=== PATIENT | male | born 1975 | race Caucasian/White ===

== ENCOUNTER 2018-03-25 11:49 | Day surgery (SDC) | payer MEDICAID, OTHER ==
[~2018-03-25] VITALS: Ht 170.2 cm; Wt 78.7 kg
[2018-03-25] MEDS ORDERED: novalog SQ (12:25)
[2018-03-25] MEDS ORDERED: INSU100V8 SQ (12:25)
[2018-03-25] MEDS ORDERED: LACTATED RINGERS 1,000 ML IV SCH (12:26)
[2018-03-25 12:43] VITALS: BP 116/81
[2018-03-25] MEDS ORDERED: ONDANSETRON ODT 8 MG PO PRN (13:00)
[2018-03-25] MEDS ORDERED: hydrALAzine 20 MG/ML, 1ML IV PRN (13:00)
[2018-03-25] MEDS ORDERED: FENTANYL PF 100 MCG/2ML IV PRN (13:00)
[2018-03-25] MEDS ORDERED: HYDROmorphone 1 MG/ML, 1ML IV PRN (13:00)
[2018-03-25] MEDS ORDERED: ONDANSETRON 2MG/ML, 2ML IV PRN (13:00)
[2018-03-25] MEDS ORDERED: PROMETHAZINE 25 MG/ML, 1ML IV PRN (13:00)
[2018-03-25] MEDS ORDERED: PROMETHAZINE 25 MG SUPP PR PRN (13:00)
[2018-03-25] MEDS ORDERED: LABETALOL 5MG/ML, 20ML IV PRN (13:00)
[2018-03-25] MEDS ORDERED: MEPERIDINE/PF 25MG/0.5ML IVPush PRN (13:00)
[2018-03-25] MEDS ORDERED: MORPHINE SULFATE 4 MG/ML, 1ML IVPush PRN (13:00)
[2018-03-25] MEDS ORDERED: PROMETHAZINE 12.5 MG SUPP PR PRN (13:00)
[2018-03-25 13:10] LABS: ALANINE AMINOTRANSFERASE 36 U/L (12-78); ALBUMIN 3.6 g/dL (3.4-5.0); ANION GAP 5 mmol/L (5-15); CALCIUM 8.5 mg/dL (8.5-10.1); CHLORIDE 108 mmol/L (98-107); CREATININE 1.19 mg/dL (0.7-1.3)
[2018-03-25 13:12] LABS: ALKALINE PHOSPHATASE 114 U/L (45-117); BILIRUBIN,TOTAL 0.8 mg/dL (0.2-1.0); TOTAL PROTEIN 7.5 g/dL (6.4-8.2)
[2018-03-25] MEDS ORDERED: MIDAZOLAM 1 MG/ML, 2ML ONE (13:12)
[2018-03-25] MEDS ORDERED: FENTANYL PF 250 MCG/5ML ONE (13:12)
[2018-03-25] MEDS ORDERED: PROPOFOL 10 MG/ML, 20ML ONE (13:15)
[2018-03-25] MEDS ORDERED: ROCURONIUM 10MG/ML,5ML ONE (13:15)
[2018-03-25] MEDS ORDERED: NEOSTIGMINE 1 MG/ML, 10ML ONE (13:16)
[2018-03-25] MEDS ORDERED: GLYCOPYRROLATE 0.4 MG/2 ML, 2ML ONE (13:16)
[2018-03-25] MEDS ORDERED: CEFAZOLIN 1,000 MG ONE (13:28)
[2018-03-25] MEDS ORDERED: OXYcodone 5 MG/5 ML ORAL.SOL UDC ONE (15:02)
[2018-03-25] MEDS: OXYcodone 5 MG/5 ML ORAL.SOL UDC PO PRN ×2 (15:04→16:29)
== END 2018-03-25 17:35 | disposition home or self-care (01) ==
LOC: OUT 11:49
PROVIDERS: ATTEND Student in an Organized Health Care Education/Training Program
DX: N20.2 Calculus of kidney with calculus of ureter (principal); N13.5 Crossing vessel and stricture of ureter without hydronephrosis; E11.9 Type 2 diabetes mellitus without complications; Z79.4 Long term (current) use of insulin
CPT/HCPCS: 36415; 52341; 52356; 74420; 80053; 82360; 82962; 88300; 93005; C1726; C1758; C1769; J0690; J2250; J2704; J2710; J3010; J7120